=== PATIENT | male | born 1965 | race Caucasian/White ===

== ENCOUNTER 2018-04-17 12:55 | Inpatient (IN) | payer OTHER ==
[2018-04-17 13:37] VITALS: BMI 22.6
--- NOTE | 2018-04-17 13:49 | HP ---
COWS - Scale Resting Pulse: 0= SD 80 or Below Sweatin= Chills/Flushing Restless Observation: 3= Extraneous Movement Pupil Size: 1= Pupils >than Normal Bone or Joint Aches: 2= Severe Diffuse Aches Runny Nose/ Eye Tearin= Runny Nose/Eyes GI Upset > 30mins: 2= Nausea/Diarrhea Tremor Observation: 2= Slight Tremor Visible Yawning Observation: 1= 1-2x During Session Anxiety or Irritability: 2=Irritable/Anxious Goose Flesh Skin: 0=Smooth Skin COWS Score: 16 CIWA Score - CIWA Score Nausea/Vomitin Muscle Tremors: 3 Anxiety: 2 Agitation: 2 Paroxysmal Sweats: 1-Minimal Palms Moist Orientation: 0-Oriented Tacttile Disturbances: 1-Very Mild Itch/Numbness Auditory Disturbances: 1-Very Mild Visual Disturbances: 1-Very Mild Sensitivity Headache: 2-Mild CIWA-Ar Total Score: 15 Admission ROS BHS - HPI Chief Complaint: i need help to stop using heroin and alcohol Allergies/Adverse Reactions: Allergies Allergy/AdvReac Type Severity Reaction Status Date / Time No Known Allergies Allergy Verified 04/17/18 13:22 History of Present Illness: this 53 years old male with heroin and alcohol dependence,seeking detox, withdrawal symptom,last detox 1999 [facility]m weight loss syncope alcohol related hepatitis c no treatment longest period of sobriety 1 year Exam Limitations: No Limitations - Ebola screening Have you traveled outside of the country in the last 21 days: No Have you had contact with anyone from an Ebola affected area: No Have you been sick,other than usual withdrawal symptoms: No Do you have a fever: No - Review of Systems Constitutional: Loss of Appetite, Malaise, Night Sweats, Changes in sleep, Weakness, Unintentional Wgt. Loss EENT: reports: Nose Congestion Respiratory: reports: No Symptoms reported Cardiac: reports: No Symptoms Reported GI: reports: Nausea, Vomiting, Abdominal cramping : reports: No Symptoms Reported Musculoskeletal: reports: Back Pain, Muscle Pain Integumentary: reports: Dryness Neuro: reports: Headache, Tremors Endocrine: reports: No Symptoms Reported Hematology: reports: No Symptoms Reported Psychiatric: reports: No Sypmtoms Reported, Judgement Intact, Mood/Affect Appropiate Patient History - Patient Medical History Hx Anemia: No Hx Asthma: No Hx Chronic Obstructive Pulmonary Disease (COPD): No Hx Cancer: No Hx Cardiac Disorders: No Hx Congestive Heart Failure: No Hx Hypertension: No Hx Hypercholesterolemia: No Hx Pacemaker: No HX Cerebrovascular Accident: No Hx Seizures: No Hx Dementia: No Hx Diabetes: Yes (iddm) Hx Gastrointestinal Disorders: No Hx Liver Disease: No Hx Genitourinary Disorders: No Hx Sexually Transmitted Disorders: No Hx Renal Disease (ESRD): No Hx Thyroid Disease: No Hx Human Immunodeficiency Virus (HIV): No (last 2016) Hx Hepatitis C: Yes Hx Depression: No Hx Suicide Attempt: No Hx Bipolar Disorder: No Hx Schizophrenia: No Other Medical History: no suicidal,no homicidal - Patient Surgical History Past Surgical History: No - PPD History Previous Implant?: Yes Documented Results: Negative w/o proof PPD to be Administered?: Yes - Smoking Cessation Smoking history: Never smoked - Substance & Tx. History Hx Alcohol Use: Yes Hx Substance Use: Yes Substance Use Type: Alcohol, Heroin Hx Substance Use Treatment: Yes (1999 last) - Substances Abused Heroin Route: Injection Frequency: Daily Amount used: 3-4 bags Age of first use: 15 Date of Last Use: 04/17/18 Alcohol-beer Route: Oral Frequency: Daily Amount used: 8 (34 oz.) Age of first use: 14 Date of Last Use: 04/17/18 Family Disease History - Family Disease History Family Disease History: Other: Brother (alcohol) Admission Physical Exam BHS - Vital Signs Vital Signs: Vital Signs - 24 hr 04/17/18 13:36 Temperature 99.2 F Pulse Rate 78 Respiratory 18 Rate Blood Pressure 143/78 - Physical General Appearance: Yes: Moderate Distress, Tremorous, Irritable, Sweating, Anxious HEENTM: Yes: Normal ENT Inspection, TAE, Pharynx Normal Respiratory: Yes: Lungs Clear, Normal Breath Sounds, No Respiratory Distress Neck: Yes: Within Normal Limits, Supple, Trachea in good position Breast: Yes: Within Normal Limits Cardiology: Yes: Within Normal Limits, Regular Rhythm, Regular Rate, S1, S2 Abdominal: Yes: Within Normal Limits, Normal Bowel Sounds, Non Tender, Flat, Soft Genitourinary: Yes: Within Normal Limits Back: Yes: Muscle Spasm Musculoskeletal: Yes: Back pain, Muscle Pain Extremities: Yes: Tremors Neurological: Yes: contact and service clerks supervisor II-XII NML intact, Fully Oriented, Alert, Motor Strength 5/5 Integumentary: Yes: Dry, Track Paz Lymphatic: Yes: Within Normal Limits - Diagnostic (1) Opioid dependence with withdrawal Current Visit: Yes Status: Acute (2) Alcohol dependence with uncomplicated withdrawal Current Visit: Yes Status: Acute (3) Alcohol dependence with intoxication Current Visit: Yes Status: Acute (4) IDDM (insulin dependent diabetes mellitus) Current Visit: Yes Status: Acute (5) Weight loss Current Visit: Yes Status: Acute (6) Dehydration Current Visit: Yes Status: Acute Cleared for Admission S - Detox or Rehab [facility] Level of Care: Medically Managed Detox Regimen/Protocol: Librium, Methadone/Librium [facility] Breath Alcohol Content Breath Alcohol Content: 0.258 Urine Drug Screen - Results Drug Screen Negative: No Urine Drug Screen Results: OPI-Opiates
[2018-04-17] MEDS ORDERED: chlordiazePOXIDE HCL 25 MG CAPSULE PO PRN (14:08)
[2018-04-17] MEDS ORDERED: ACETAMINOPHEN 325 MG TABLET (FP) PO PRN (14:08)
[2018-04-17] MEDS ORDERED: LOPERAMIDE HCL 2 MG CAPSULE PO PRN (14:08)
[2018-04-17] MEDS ORDERED: guaiFENesin/D-METHORPHAN HB 10 ML UNIT-DOSE CUPS PO PRN (14:08)
[2018-04-17] MEDS ORDERED: hydrOXYzine PAMOATE 25 MG CAPSULE (FP) PO PRN (14:08)
[2018-04-17] MEDS ORDERED: MAGNESIUM HYDROX 2400MG/30ML ORAL SUSPENSION 30 ML CUP PO PRN (14:08)
[2018-04-17] MEDS ORDERED: MAGNESIUM CITRATE 300 ML BOTTLE PO PRN (14:08)
[2018-04-17] MEDS ORDERED: MAG HYDROX/AL HYDROX/SIMETH 30 ML UNIT-DOSE CUP PO PRN (14:08)
[2018-04-17] MEDS ORDERED: IBUPROFEN 400 MG TABLET (FP) PO PRN (14:08)
[2018-04-17] MEDS ORDERED: P-EPHED 60MG/TRIPROLIDI 2.5MG TABLET PO PRN (14:08)
[2018-04-17] MEDS ORDERED: MENTHOL/PHENOL 1 EACH UD MM PRN (14:08)
[2018-04-17] MEDS ORDERED: METHADONE HCL 10 MG TABLET (FOR DETOX USE ONLY) PO ONE ×2 (15:50→23:00)
[2018-04-17] MEDS: chlordiazePOXIDE HCL 25 MG CAPSULE PO SCH ×2 (17:10→22:10)
[2018-04-17] MEDS: INSULIN SLIDING SCALE (NOVOLOG) 1 VIAL SQ SCH ×2 (17:10→22:10)
[2018-04-17] MEDS: MELATONIN 5 MG TABLETS PO PRN (22:10)
[2018-04-17] MEDS: INSULIN (LEVEMIR) 100 UNITS/ML UNITS SQ SCH (22:10)
[2018-04-17] MEDS: THIAMINE HCL 100 MG TABLET (FP) PO SCH (22:12)
[2018-04-18] MEDS: chlordiazePOXIDE HCL 25 MG CAPSULE PO SCH ×4 (05:38→22:34)
[2018-04-18] MEDS: INSULIN SLIDING SCALE (NOVOLOG) 1 VIAL SQ SCH ×4 (07:32→21:30)
--- NOTE | 2018-04-18 09:39 | EKG ---
Test Reason : Blood Pressure : / mmHG Vent. Rate : 082 BPM Atrial Rate : 082 BPM P-R Int : 142 ms QRS Dur : 084 ms QT Int : 372 ms P-R-T Axes : 072 070 047 degrees QTc Int : 434 ms NORMAL SINUS RHYTHM NORMAL ECG NO PREVIOUS ECGS AVAILABLE Confirmed by MEAGHAN DON MD ([id number]) on 04/18/2018 9:38:52 AM Referred By: Confirmed By:MEAGHAN DON MD
[2018-04-18] MEDS ORDERED: METHADONE HCL 10 MG TABLET (FOR DETOX USE ONLY) PO ONE (10:00)
[2018-04-18] MEDS: PRENATAL VITAMINS W/ FOLIC ACID TABLET (FP) PO SCH (10:39)
[2018-04-18 11:06] LABS: HEMATOCRIT 51.5 % (35.4-49); HEMOGLOBIN 16.4 GM/dL (11.7-16.9); MCH 26.2 pg (25.7-33.7); MCHC 31.9 g/dl (32.0-35.9); MEAN CELL VOLUME 82.1 fl (80-96); MEAN PLT VOLUME 10.9 fl (7.5-11.1); PLATELET COUNT 266 K/MM3 (134-434); RBC 6.27 M/mm3 (4.00-5.60); RDW 14.8 % (11.9-15.9); WHITE BLOOD COUNT 7.2 K/mm3 (4.0-10.0)
[2018-04-18 11:22] LABS: ALBUMIN 4.1 g/dl (3.4-5.0); ALK PHOS 123 U/L (45-117); ANION GAP 10 MMOL/L (8-16); BILIRUBIN,TOTAL 0.4 mg/dL (0.2-1); BLOOD UREA NITROGEN 12 mg/dL (7-18); CALCIUM 10.1 mg/dL (8.5-10.1); CHLORIDE 103 mmol/L (98-107); CO2 27 mmol/L (21-32); GLUCOSE,RANDOM 116 mg/dL (74-106); POTASSIUM 4.6 mmol/L (3.5-5.1); SGOT/AST 208 U/L (15-37); SGPT/ALT 181 U/L (13-61); SODIUM 139 mmol/L (136-145); TOT PROT 8.9 g/dl (6.4-8.2)
[2018-04-18] MEDS ORDERED: INSULIN (NOVOLOG) ASPART 100 UNITS/ML 10ML VIAL ONE ×2 (11:32→17:10)
[2018-04-18] MEDS ORDERED: FLU VACCINE QUAD 60 MCG/0.5 ML (MDV 18-19) IM ONE (12:00)
--- NOTE | 2018-04-18 14:56 | PN ---
[facility] CIWA - CIWA Score Nausea/Vomitin Muscle Tremors: 4-Moderate,w/Arms Extend Anxiety: 4-Mod. Anxious/Guarded Agitation: 4-Moderately Restless Paroxysmal Sweats: 3 Orientation: 0-Oriented Tacttile Disturbances: 0-None Auditory Disturbances: 0-None Visual Disturbances: 0-None Headache: 1-Very Mild CIWA-Ar Total Score: 18 BHS COWS - Scale Resting Pulse: 0= [place] 80 or Below Sweatin= Chills/Flushing Restless Observation: 3= Extraneous Movement Pupil Size: 0= Normal to Room Light Bone or Joint Aches: 2= Severe Diffuse Aches Runny Nose/ Eye Tearin= Runny Nose/Eyes GI Upset > 30mins: 2= Nausea/Diarrhea Tremor Observation of Outstretched Hands: 2= Slight Tremor Visible Yawning Observation: 1= 1-2x During Session Anxiety or Irritability: 2=Irritable/Anxious Goose Flesh Skin: 0=Smooth Skin COWS Score: 15 [facility] Progress Note (SOAP) Subjective: Tremor, chills, sweating Objective: 04/18/18 14:53 Last Vital Signs Temp Pulse Resp BP Pulse Ox 97.2 F L 60 18 117/71 04/18/18 13:20 04/18/18 14:30 04/18/18 13:20 04/18/18 13:20 Laboratory Tests 04/17/18 04/17/18 04/17/18 13:49 14:08 17:07 WBC RBC Hgb Hct MCV MCH MCHC RDW Plt Count MPV Sodium Potassium Chloride Carbon Dioxide Anion Gap BUN Creatinine Creat Clearance w eGFR POC Glucometer 138 123 Random Glucose Calcium Total Bilirubin AST ALT Alkaline Phosphatase Total Protein Albumin RPR Titer HIV 1&2 Antibody Screen Negative HIV P24 Antigen Negative 04/17/18 04/18/18 04/18/18 20:46 05:39 06:00 WBC 7.2 RBC 6.27 H Hgb 16.4 Hct 51.5 H MCV 82.1 MCH 26.2 MCHC 31.9 L RDW 14.8 Plt Count 266 MPV 10.9 Sodium Potassium Chloride Carbon Dioxide Anion Gap BUN Creatinine Creat Clearance w eGFR POC Glucometer 135 122 Random Glucose Calcium Total Bilirubin AST ALT Alkaline Phosphatase Total Protein Albumin RPR Titer HIV 1&2 Antibody Screen HIV P24 Antigen 04/18/18 04/18/18 04/18/18 06:00 06:00 11:30 WBC RBC Hgb Hct MCV MCH MCHC RDW Plt Count MPV Sodium 139 Potassium 4.6 Chloride 103 Carbon Dioxide 27 Anion Gap 10 BUN 12 Creatinine 1.0 Creat Clearance w eGFR > 60 POC Glucometer 185 Random Glucose 116 H Calcium 10.1 Total Bilirubin 0.4 AST 208 H ALT 181 H Alkaline Phosphatase 123 H Total Protein 8.9 H Albumin 4.1 RPR Titer Nonreactive HIV 1&2 Antibody Screen HIV P24 Antigen Labs reviewed: increased RBC, increased AST/ALT, increased glucose Assessment: 04/18/18 14:56 Withdrawal sxs Noted with hyperglycemia, erythrocytosis and elevated LFTs Plan: Continue detox Hyperglycemia: secondary to DMT2, continue present regimen Erythrocytosis: repeat CBC Elevated LFTs: most likely related to hepatitis C (h/o hep c), repeat AST/ALT, send hepatitis C ab
[2018-04-18 17:41] LABS: URINE APPEARANCE CLEAR; URINE BILIRUBIN NEGATIVE (<2.0 mg/dL); URINE COLOR COLORLESS; URINE GLUCOSE (UA) NEGATIVE (NEGATIVE); URINE KETONE NEGATIVE (NEGATIVE); URINE LEUK ESTERASE NEGATIVE (NEGATIVE); URINE NITRITE NEGATIVE (NEGATIVE); URINE PROTEIN NEGATIVE (NEGATIVE); URINE UROBILINOGEN NEGATIVE mg/dL (0.2-1.0)
--- NOTE | 2018-04-18 18:39 | CONSULT ---
[facility] Psychiatric Consult - Data Date of interview: 04/18/18 Admission source: [facility] Identifying data: Readmission to [facility] for this 53 y/o male seeking detoxification treatment on for heroin and alcohol dependence.Patient is single,a father of five,homeless,unemployed and supported on welfare. Substance Abuse History: Discussed with the patient in this interview.Details in current [facility] report as follows : Smoking history: Never smoked. - Substance & Tx. History. Hx Alcohol Use: Yes. Hx Substance Use: Yes. Substance Use Type : Alcohol, Heroin. Hx Substance Use Treatment: Yes (1999 last). - Substances Abused. Heroin. Route: Injection. Frequency: Daily. Amount used: 3-4 bags. Age of first use: 15. Date of Last Use: 04/17/18. Alcohol-beer. Route: Oral. Frequency: Daily. Amount used: 8 (34 oz.). Age of first use: 14. Date of Last Use: 04/17/18 Medical History: Hepatitis C and diabetes mellitus. Psychiatric History: History of one psychiatric hospitalization at [facility].Diagnosed with MDD.Patient used to be followed at [facility] in [facility]. Dropped out of [facility] care. Mr Saxena denies history of suicide attempts. Physical/Sexual Abuse/Trauma History: Patient denies. Additional Comment: Urine Drug Screen Results: OPI-Opiates.Noted. Mental Status Exam - Mental Status Exam Alert and Oriented to: Time, Place Cognitive Function: Good Patient Appearance: Well Groomed Mood: Hopeful, Euthymic Affect: Appropriate, Normal Range Patient Behavior: Appropriate, Cooperative Speech Pattern: Clear Voice Loudness: Normal Thought Process: Intact, Goal Oriented Thought Disorder: Not Present Hallucinations: Denies Suicidal Ideation: Denies Homicidal Ideation: Denies Insight/Judgement: Poor Sleep: Poorly, Difficulty falling asleep Appetite: Good Muscle strength/Tone: Normal Gait/Station: Normal Psychiatric Findings - Problem List ([place] 1, 2,3) (1) Alcohol dependence with uncomplicated withdrawal Current Visit: Yes Status: Acute (2) Opioid dependence with withdrawal Current Visit: Yes Status: Acute (3) Insomnia Current Visit: Yes Status: Acute - Initial Treatment Plan Initial Treatment Plan: Psychoeducation.Detoxification.Slep hygiene recommended to the patient.Group + supportive therapy session. Insomnia is addressed with Ambien 5 mg po hs prn.Patrient is made aware of risk of parasomnias.Agrees to this careplan.Observation.
--- NOTE | 2018-04-18 21:26 | PN ---
[facility]HS Progress Note Note: Sleepy but easily arousable. Oriented. Vital Signs 04/18/18 04/18/18 04/18/18 14:30 15:00 15:30 Temperature Pulse Rate 60 80 80 Respiratory 18 18 Rate Blood Pressure 04/18/18 04/18/18 04/18/18 16:00 16:30 17:00 Temperature Pulse Rate 78 84 80 Respiratory 18 18 18 Rate Blood Pressure 04/18/18 18:00 Temperature 98.0 F Pulse Rate 56 L Respiratory 18 Rate Blood Pressure 116/64 CMP Sodium 139 mmol/L (136-145) 04/18/18 06:00 Potassium 4.6 mmol/L (3.5-5.1) 04/18/18 06:00 Chloride 103 mmol/L (98-107) 04/18/18 06:00 Carbon Dioxide 27 mmol/L (21-32) 04/18/18 06:00 Anion Gap 10 MMOL/L (8-16) 04/18/18 06:00 BUN 12 mg/dL (7-18) 04/18/18 06:00 Creatinine 1.0 mg/dL (0.55-1.3) 04/18/18 06:00 Creat Clearance w eGFR > 60 (>60) 04/18/18 06:00 POC Glucometer 281 UNITS (80-120) 04/18/18 21:04 Random Glucose 116 mg/dL (74-106) H 04/18/18 06:00 Calcium 10.1 mg/dL (8.5-10.1) 04/18/18 06:00 Total Bilirubin 0.4 mg/dL (0.2-1) 04/18/18 06:00 AST 208 U/L (15-37) H 04/18/18 06:00 ALT 181 U/L (13-61) H 04/18/18 06:00 Alkaline Phosphatase 123 U/L (45-117) H 04/18/18 06:00 Total Protein 8.9 g/dl (6.4-8.2) H 04/18/18 06:00 Albumin 4.1 g/dl (3.4-5.0) 04/18/18 06:00 Labs reviewed. Hold Coverage but give Levemir. Serum ammonia level in am.
[2018-04-18] MEDS: THIAMINE HCL 100 MG TABLET (FP) PO SCH (21:28)
[2018-04-18] MEDS: INSULIN (LEVEMIR) 100 UNITS/ML UNITS SQ SCH (21:28)
[2018-04-19] MEDS: chlordiazePOXIDE HCL 25 MG CAPSULE PO SCH ×2 (05:55→10:46)
[2018-04-19] MEDS: INSULIN SLIDING SCALE (NOVOLOG) 1 VIAL SQ SCH ×4 (06:05→21:44)
[2018-04-19] MEDS ORDERED: METHADONE HCL 5 MG TABLET (FOR DETOX USE ONLY) PO ONE (10:00)
[2018-04-19 10:11] LABS: BASO % 0.6 % (0-2.0); EOS % 3.4 % (0-4.5); HEMATOCRIT 51.5 % (35.4-49); HEMOGLOBIN 16.6 GM/dL (11.7-16.9); LYMPH % 33.7 % (8-40); MCH 26.6 pg (25.7-33.7); MCHC 32.2 g/dl (32.0-35.9); MEAN CELL VOLUME 82.7 fl (80-96); MEAN PLT VOLUME 9.5 fl (7.5-11.1); MONO % 28.5 % (3.8-10.2); NEUT % 33.8 % (42.8-82.8); PLATELET COUNT 234 K/MM3 (134-434); RBC 6.22 M/mm3 (4.00-5.60); RDW 14.7 % (11.9-15.9); WHITE BLOOD COUNT 5.8 K/mm3 (4.0-10.0)
[2018-04-19] MEDS: PRENATAL VITAMINS W/ FOLIC ACID TABLET (FP) PO SCH (10:46)
[2018-04-19 10:51] LABS: SGOT/AST 143 U/L (15-37); SGPT/ALT 160 U/L (13-61)
[2018-04-19 11:38] LABS: ANISOCYTOSIS 0; MACROCYTOSIS 0; PLATELET ESTIMATE NORMAL
[2018-04-19] MEDS ORDERED: INSULIN (NOVOLOG) ASPART 100 UNITS/ML 10ML VIAL ONE ×2 (12:01→17:13)
--- NOTE | 2018-04-19 14:53 | PN ---
[facility] CIWA - CIWA Score Nausea/Vomitin-No Nausea/No Vomiting Muscle Tremors: 2 Anxiety: 3 Agitation: 3 Paroxysmal Sweats: 2 Orientation: 0-Oriented Tacttile Disturbances: 2-Mild Itch/Numbness/Burn Auditory Disturbances: 0-None Visual Disturbances: 0-None Headache: 0-None Present CIWA-Ar Total Score: 12 BHS COWS - Scale Resting Pulse: 0= [place] 80 or Below Sweatin= Chills/Flushing Restless Observation: 1= Difficult to Sit Still Pupil Size: 1= Pupils >than Normal Bone or Joint Aches: 1= Mild Discomfort Runny Nose/ Eye Tearin= Runny Nose/Eyes GI Upset > 30mins: 0= None Tremor Observation of Outstretched Hands: 2= Slight Tremor Visible Yawning Observation: 2= >3x During Session Anxiety or Irritability: 2=Irritable/Anxious Goose Flesh Skin: 0=Smooth Skin COWS Score: 12 S Progress Note (SOAP) Subjective: body aches, chills, sweats Objective: 04/19/18 14:52 Vital Signs Temperature 97.4 F L 04/19/18 13:50 Pulse Rate 65 04/19/18 13:50 Respiratory Rate 18 04/19/18 13:50 Blood Pressure 113/73 04/19/18 13:50 O2 Sat by Pulse Oximetry (%) Laboratory Last Values WBC 5.8 K/mm3 (4.0-10.0) 04/19/18 08:00 RBC 6.22 M/mm3 (4.00-5.60) H 04/19/18 08:00 Hgb 16.6 GM/dL (11.7-16.9) 04/19/18 08:00 Hct 51.5 % (35.4-49) H 04/19/18 08:00 MCV 82.7 fl (80-96) 04/19/18 08:00 MCH 26.6 pg (25.7-33.7) 04/19/18 08:00 MCHC 32.2 g/dl (32.0-35.9) 04/19/18 08:00 RDW 14.7 % (11.9-15.9) 04/19/18 08:00 Plt Count 234 K/MM3 (134-434) 04/19/18 08:00 MPV 9.5 fl (7.5-11.1) D 04/19/18 08:00 Absolute Neuts (auto) 2.0 K/mm3 (1.5-8.0) 04/19/18 08:00 Neutrophils % 33.8 % (42.8-82.8) L 04/19/18 08:00 Neutrophils % (Manual) 30.0 % (42.8-82.8) L 04/19/18 08:00 Band Neutrophils % 3.0 % 04/19/18 08:00 Lymphocytes % 33.7 % (8-40) 04/19/18 08:00 Lymphocytes % (Manual) 30.0 % (8-40) 04/19/18 08:00 Monocytes % 28.5 % (3.8-10.2) H 04/19/18 08:00 Monocytes % (Manual) 25 % (3.8-10.2) H 04/19/18 08:00 Eosinophils % 3.4 % (0-4.5) 04/19/18 08:00 Eosinophils % (Manual) 5.0 % (0-4.5) H 04/19/18 08:00 Basophils % 0.6 % (0-2.0) 04/19/18 08:00 Basophils % (Manual) 0.0 % (0-2.0) 04/19/18 08:00 Myelocytes % (Man) 1 % (0-2) 04/19/18 08:00 Promyelocytes % (Man) 0 % (0-2) 04/19/18 08:00 Blast Cells % (Manual) 0 % (0-0) 04/19/18 08:00 Nucleated RBC % 0 % (0-0) 04/19/18 08:00 Metamyelocytes 0 % (0-2) 04/19/18 08:00 Hypochromia 0 04/19/18 08:00 Platelet Estimate Normal 04/19/18 08:00 Polychromasia 1+ 04/19/18 08:00 Poikilocytosis 0 04/19/18 08:00 Anisocytosis 0 04/19/18 08:00 Microcytosis 1+ 04/19/18 08:00 Macrocytosis 0 04/19/18 08:00 Sodium 139 mmol/L (136-145) 04/18/18 06:00 Potassium 4.6 mmol/L (3.5-5.1) 04/18/18 06:00 Chloride 103 mmol/L (98-107) 04/18/18 06:00 Carbon Dioxide 27 mmol/L (21-32) 04/18/18 06:00 Anion Gap 10 MMOL/L (8-16) 04/18/18 06:00 BUN 12 mg/dL (7-18) 04/18/18 06:00 Creatinine 1.0 mg/dL (0.55-1.3) 04/18/18 06:00 Creat Clearance w eGFR > 60 (>60) 04/18/18 06:00 POC Glucometer 188 UNITS (80-120) 04/19/18 11:57 Random Glucose 116 mg/dL (74-106) H 04/18/18 06:00 Calcium 10.1 mg/dL (8.5-10.1) 04/18/18 06:00 Total Bilirubin 0.4 mg/dL (0.2-1) 04/18/18 06:00 AST 143 U/L (15-37) H 04/19/18 08:00 ALT 160 U/L (13-61) H 04/19/18 08:00 Alkaline Phosphatase 123 U/L (45-117) H 04/18/18 06:00 Ammonia 93.10 umol/L (11-32) H 04/19/18 08:00 Total Protein 8.9 g/dl (6.4-8.2) H 04/18/18 06:00 Albumin 4.1 g/dl (3.4-5.0) 04/18/18 06:00 Urine Color Colorless 04/18/18 16:30 Urine Appearance Clear 04/18/18 16:30 Urine pH 6.0 (5.0-8.0) 04/18/18 16:30 Ur Specific [place] 1.002 (1.010-1.035) L 04/18/18 16:30 Urine Protein Negative (NEGATIVE) 04/18/18 16:30 Urine Glucose (UA) Negative (NEGATIVE) 04/18/18 16:30 Urine Ketones Negative (NEGATIVE) 04/18/18 16:30 Urine Blood Negative (NEGATIVE) 04/18/18 16:30 Urine Nitrite Negative (NEGATIVE) 04/18/18 16:30 Urine Bilirubin Negative (<2.0 mg/dL) 04/18/18 16:30 Urine Urobilinogen Negative mg/dL (0.2-1.0) 04/18/18 16:30 Ur Leukocyte Esterase Negative (NEGATIVE) 04/18/18 16:30 RPR Titer Nonreactive (NONREACTIVE) 04/18/18 06:00 HIV 1&2 Antibody Screen Negative 04/17/18 14:08 HIV P24 Antigen Negative 04/17/18 14:08 elevated ammonia level liver enzymes improve since last labs 04/18/18 Aox3 no distress no adventitious breath sound s full ROM ambulating in the unit Assessment: 04/19/18 14:56 withdrawal symptoms elevated ammonia matheus Plan: increase PO fluids lactulose TID PO BRITTANI repeat ammonia levels in AM continue to monitor continue detox
[2018-04-19] MEDS: LACTULOSE 20 GM/30 ML UDC (FOR ORAL USE ONLY) PO SCH ×2 (18:00→22:54)
[2018-04-19] MEDS: chlordiazePOXIDE 5 MG CAPSULE PO SCH ×2 (18:02→22:54)
[2018-04-19] MEDS: ZOLPIDEM TARTRATE 5 MG TABLET PO PRN (22:54)
[2018-04-19] MEDS: THIAMINE HCL 100 MG TABLET (FP) PO SCH (22:54)
[2018-04-19] MEDS: INSULIN (LEVEMIR) 100 UNITS/ML UNITS SQ SCH (22:54)
[2018-04-20] MEDS: chlordiazePOXIDE 5 MG CAPSULE PO SCH ×2 (06:00→10:37)
[2018-04-20] MEDS ORDERED: INSULIN (NOVOLOG) ASPART 100 UNITS/ML 10ML VIAL ONE ×4 (06:16→23:02)
[2018-04-20] MEDS: INSULIN SLIDING SCALE (NOVOLOG) 1 VIAL SQ SCH ×4 (06:46→23:00)
[2018-04-20] MEDS ORDERED: METHADONE HCL 5 MG TABLET (FOR DETOX USE ONLY) PO ONE (10:00)
[2018-04-20] MEDS: PRENATAL VITAMINS W/ FOLIC ACID TABLET (FP) PO SCH (10:37)
[2018-04-20] MEDS: LACTULOSE 20 GM/30 ML UDC (FOR ORAL USE ONLY) PO SCH ×4 (10:37→22:59)
--- NOTE | 2018-04-20 12:13 | PN ---
BHS Progress Note (SOAP) Subjective: Interrupted sleep, mild tremors and sweats Objective: 04/20/18 12:12 Vital Signs - 8 hr 04/20/18 04/20/18 06:39 09:34 Temperature 97.5 F L 96.1 F L Pulse Rate 57 L 78 Respiratory 18 18 Rate Blood Pressure 116/66 114/72 Laboratory Last Values WBC 5.8 K/mm3 (4.0-10.0) 04/19/18 08:00 RBC 6.22 M/mm3 (4.00-5.60) H 04/19/18 08:00 Hgb 16.6 GM/dL (11.7-16.9) 04/19/18 08:00 Hct 51.5 % (35.4-49) H 04/19/18 08:00 MCV 82.7 fl (80-96) 04/19/18 08:00 MCH 26.6 pg (25.7-33.7) 04/19/18 08:00 MCHC 32.2 g/dl (32.0-35.9) 04/19/18 08:00 RDW 14.7 % (11.9-15.9) 04/19/18 08:00 Plt Count 234 K/MM3 (134-434) 04/19/18 08:00 MPV 9.5 fl (7.5-11.1) D 04/19/18 08:00 Absolute Neuts (auto) 2.0 K/mm3 (1.5-8.0) 04/19/18 08:00 Neutrophils % 33.8 % (42.8-82.8) L 04/19/18 08:00 Neutrophils % (Manual) 30.0 % (42.8-82.8) L 04/19/18 08:00 Band Neutrophils % 3.0 % 04/19/18 08:00 Lymphocytes % 33.7 % (8-40) 04/19/18 08:00 Lymphocytes % (Manual) 30.0 % (8-40) 04/19/18 08:00 Monocytes % 28.5 % (3.8-10.2) H 04/19/18 08:00 Monocytes % (Manual) 25 % (3.8-10.2) H 04/19/18 08:00 Eosinophils % 3.4 % (0-4.5) 04/19/18 08:00 Eosinophils % (Manual) 5.0 % (0-4.5) H 04/19/18 08:00 Basophils % 0.6 % (0-2.0) 04/19/18 08:00 Basophils % (Manual) 0.0 % (0-2.0) 04/19/18 08:00 Myelocytes % (Man) 1 % (0-2) 04/19/18 08:00 Promyelocytes % (Man) 0 % (0-2) 04/19/18 08:00 Blast Cells % (Manual) 0 % (0-0) 04/19/18 08:00 Nucleated RBC % 0 % (0-0) 04/19/18 08:00 Metamyelocytes 0 % (0-2) 04/19/18 08:00 Hypochromia 0 04/19/18 08:00 Platelet Estimate Normal 04/19/18 08:00 Polychromasia 1+ 04/19/18 08:00 Poikilocytosis 0 04/19/18 08:00 Anisocytosis 0 04/19/18 08:00 Microcytosis 1+ 04/19/18 08:00 Macrocytosis 0 04/19/18 08:00 Sodium 139 mmol/L (136-145) 04/18/18 06:00 Potassium 4.6 mmol/L (3.5-5.1) 04/18/18 06:00 Chloride 103 mmol/L (98-107) 04/18/18 06:00 Carbon Dioxide 27 mmol/L (21-32) 04/18/18 06:00 Anion Gap 10 MMOL/L (8-16) 04/18/18 06:00 BUN 12 mg/dL (7-18) 04/18/18 06:00 Creatinine 1.0 mg/dL (0.55-1.3) 04/18/18 06:00 Creat Clearance w eGFR > 60 (>60) 04/18/18 06:00 POC Glucometer 184 UNITS (80-120) 04/20/18 11:01 Random Glucose 116 mg/dL (74-106) H 04/18/18 06:00 Calcium 10.1 mg/dL (8.5-10.1) 04/18/18 06:00 Total Bilirubin 0.4 mg/dL (0.2-1) 04/18/18 06:00 AST 143 U/L (15-37) H 04/19/18 08:00 ALT 160 U/L (13-61) H 04/19/18 08:00 Alkaline Phosphatase 123 U/L (45-117) H 04/18/18 06:00 Ammonia 101.40 umol/L (11-32) H 04/20/18 07:40 Total Protein 8.9 g/dl (6.4-8.2) H 04/18/18 06:00 Albumin 4.1 g/dl (3.4-5.0) 04/18/18 06:00 Urine Color Colorless 04/18/18 16:30 Urine Appearance Clear 04/18/18 16:30 Urine pH 6.0 (5.0-8.0) 04/18/18 16:30 Ur Specific [place] 1.002 (1.010-1.035) L 04/18/18 16:30 Urine Protein Negative (NEGATIVE) 04/18/18 16:30 Urine Glucose (UA) Negative (NEGATIVE) 04/18/18 16:30 Urine Ketones Negative (NEGATIVE) 04/18/18 16:30 Urine Blood Negative (NEGATIVE) 04/18/18 16:30 Urine Nitrite Negative (NEGATIVE) 04/18/18 16:30 Urine Bilirubin Negative (<2.0 mg/dL) 04/18/18 16:30 Urine Urobilinogen Negative mg/dL (0.2-1.0) 04/18/18 16:30 Ur Leukocyte Esterase Negative (NEGATIVE) 04/18/18 16:30 RPR Titer Nonreactive (NONREACTIVE) 04/18/18 06:00 HIV 1&2 Antibody Screen Negative 04/17/18 14:08 HIV P24 Antigen Negative 04/17/18 14:08 Labs noted-Elevated LFTs Assessment: 04/20/18 12:13 Withdrawal sx Plan: Continue detox
[2018-04-20] MEDS: chlordiazePOXIDE HCL 10 MG CAPSULE PO SCH ×2 (17:43→22:59)
[2018-04-20] MEDS: THIAMINE HCL 100 MG TABLET (FP) PO SCH (22:59)
[2018-04-20] MEDS: INSULIN (LEVEMIR) 100 UNITS/ML UNITS SQ SCH (23:00)
[2018-04-20] MEDS: MELATONIN 5 MG TABLETS PO PRN (23:13)
[2018-04-21] MEDS: chlordiazePOXIDE HCL 10 MG CAPSULE PO SCH ×2 (05:27→10:44)
[2018-04-21] MEDS ORDERED: INSULIN (NOVOLOG) ASPART 100 UNITS/ML 10ML VIAL ONE ×2 (06:22→16:31)
[2018-04-21] MEDS: INSULIN SLIDING SCALE (NOVOLOG) 1 VIAL SQ SCH ×4 (06:37→21:41)
[2018-04-21] MEDS ORDERED: METHADONE HCL 10 MG TABLET (FOR DETOX USE ONLY) PO ONE (10:00)
[2018-04-21] MEDS: PRENATAL VITAMINS W/ FOLIC ACID TABLET (FP) PO SCH (10:44)
[2018-04-21] MEDS: LACTULOSE 20 GM/30 ML UDC (FOR ORAL USE ONLY) PO SCH ×4 (10:45→21:29)
--- NOTE | 2018-04-21 16:36 | PN ---
BHS Progress Note (SOAP) Subjective: interrupted sleep sweats Objective: 04/21/18 16:35 A O x 3 Vital Signs Temperature 96.9 F L 04/21/18 14:32 Pulse Rate 65 04/21/18 14:32 Respiratory Rate 18 04/21/18 14:32 Blood Pressure 118/73 04/21/18 14:32 O2 Sat by Pulse Oximetry (%) Assessment: 04/21/18 16:36 withdrawal sx Plan: continue detox
[2018-04-21] MEDS: INSULIN (LEVEMIR) 100 UNITS/ML UNITS SQ SCH (21:29)
[2018-04-21] MEDS: THIAMINE HCL 100 MG TABLET (FP) PO SCH (21:30)
[2018-04-21] MEDS: ZOLPIDEM TARTRATE 5 MG TABLET PO PRN (21:30)
[2018-04-22] MEDS ORDERED: METHADONE HCL 5 MG TABLET (FOR DETOX USE ONLY) PO ONE (06:00)
[2018-04-22] MEDS: INSULIN SLIDING SCALE (NOVOLOG) 1 VIAL SQ SCH ×2 (06:45→11:50)
[2018-04-22] MEDS ORDERED: INSULIN (NOVOLOG) ASPART 100 UNITS/ML 10ML VIAL ONE ×2 (06:46→11:50)
[2018-04-22 09:39] VITALS: BP 99/67; PULSE 83; TEMP 97.3
[2018-04-22] MEDS: PRENATAL VITAMINS W/ FOLIC ACID TABLET (FP) PO SCH (10:41)
[2018-04-22] MEDS: LACTULOSE 20 GM/30 ML UDC (FOR ORAL USE ONLY) PO SCH (10:41)
--- NOTE | 2018-04-22 12:04 | DS ---
[facility] Detox Discharge Summary Admission Date: 04/17/18 Discharge Date: 04/22/18 - History Present History: Alcohol Dependence, Opioid Dependence - Physical Exam Results Vital Signs: Vital Signs Temperature 97.3 F L 04/22/18 09:37 Pulse Rate 83 04/22/18 09:37 Respiratory Rate 18 04/22/18 09:37 Blood Pressure 99/67 04/22/18 09:37 O2 Sat by Pulse Oximetry (%) Pertinent Admission Physical Exam Findings: PATIENT TOLERATED DETOX WELL. MEDICALLY STABLE. DENIES SI/HI. ALERT AND ORIENTED X 3, SKIN WARM AND DRY, AMB AD SABINE. IN NAD. PATIENT ACCEPTED REHAB REFERRAL TO [facility] ON 3W. PATIENT ENCOURAGED TO COMPLETE REHAB TO PREVENT RELAPSE. - Treatment Hospital Course: Detox Protocol Followed, Detoxed Safely, Responded well, Discharged Condition Good, Rehab Referral Accepted Patient has Accepted a Rehab Referral to: [facility] - Medication Discharge Medications: Ambulatory Orders Insulin Aspart [Novolog] 14 units SQ TID 04/17/18 Insulin Glargine,Hum.rec.anlog [Lantus Solostar PEN (NF)] 24 units SQ HS - AMA Did Patient Leave Against Medical Advice: No
== END 2018-04-22 12:40 | disposition other institution (70) | DRG 773 ==
LOC: YASAS 12:55 → Y3N 15:39
PROC: HZ2ZZZZ Detoxification Services for Substance Abuse Treatment (ICD-10-PCS; principal; 2018-04-17)
DX: F11.23 Opioid dependence with withdrawal (principal); F10.230 Alcohol dependence with withdrawal, uncomplicated; D75.1 Secondary polycythemia; B18.2 Chronic viral hepatitis C; G47.00 Insomnia, unspecified; E86.0 Dehydration; E11.9 Type 2 diabetes mellitus without complications; Z79.4 Long term (current) use of insulin; R94.5 Abnormal results of liver function studies; R63.4 Abnormal weight loss; Z68.22 Body mass index [BMI] 22.0-22.9, adult
CPT/HCPCS: 36415; 80053; 81003; 82140; 82962; 84450; 84460; 85025; 85027; 86593; 87389; 87522; 90688; 93005; 93010; G0008

== ENCOUNTER 2018-04-22 12:45 | Inpatient (IN) | payer OTHER ==
[2018-04-22] MEDS ORDERED: LOPERAMIDE HCL 2 MG CAPSULE PO PRN (14:00)
[2018-04-22] MEDS ORDERED: P-EPHED 60MG/TRIPROLIDI 2.5MG TABLET PO PRN (14:00)
[2018-04-22] MEDS ORDERED: MAGNESIUM CITRATE 300 ML BOTTLE PO PRN (14:00)
[2018-04-22] MEDS ORDERED: MENTHOL/PHENOL 1 EACH UD MM PRN (14:00)
[2018-04-22] MEDS ORDERED: guaiFENesin/D-METHORPHAN HB 10 ML UNIT-DOSE CUPS PO PRN (14:00)
[2018-04-22] MEDS ORDERED: MAGNESIUM HYDROX 2400MG/30ML ORAL SUSPENSION 30 ML CUP PO PRN (14:00)
[2018-04-22] MEDS ORDERED: IBUPROFEN 400 MG TABLET (FP) PO PRN (14:00)
[2018-04-22] MEDS ORDERED: MAG HYDROX/AL HYDROX/SIMETH 30 ML UNIT-DOSE CUP PO PRN (14:00)
[2018-04-22] MEDS ORDERED: ACETAMINOPHEN 325 MG TABLET (FP) PO PRN (14:00)
[2018-04-22] MEDS ORDERED: hydrOXYzine PAMOATE 25 MG CAPSULE (FP) PO PRN (14:00)
--- NOTE | 2018-04-22 14:03 | HP ---
[facility] Rehab Assess/Revision - Admission History Admitted to Rehab from: [facility] Date of Admission to Rehab: 04/22/2018 - Vital signs Vital Signs: Vital Signs Period Temp Pulse Resp BP Sys/Price Pulse Ox Last 24 Hr 98.3 F 72 18 112/69 - Findings Detox History & Physical reviewed: Yes Concur with findings: Yes Inpatient Rehab Admission - Initial Determination Are CD services needed?: Yes Free of communicable disease: Yes Not in need of hospitalization: Yes - Rehab Admission Criteria Previous failed treatment: Yes Poor recovery environment: Yes Comorbidities: Yes Lacks judgement: Yes Patient is meeting Inpatient Rehab admission criteria:: Yes
--- NOTE | 2018-04-22 14:16 | HP ---
Psychiatrist Admission - Data Date of interview: 04/22/18 Admission source: 3N Identifying data: This is the first [facility] admission for this 53 years old single male, father of 5 children, unemployedon food stamp, homeless Medical History: Significant for hepatitis C and diabetes mellitus. Psychiatric History: Reports one previous psychiatric hospitalization in at [facility] for suicidal ideation with intent to jump out of window. Told headline writer that he was in residential treament at [facility] when this admission took place. He said that it was around [place] time and he was feeling depressed and lonely. He reports that he was discharged on 2 medications for sleep and for depression. Following discharge he saw a psychiatrist affiliated with [facility] for approximately one year. He has no recollection of name of medications. At present, reports feeling well but sleeping poorly Physical/Sexual Abuse/Trauma History: Denies history of emotional, physical or sexual abuse as well as DV relationship. Additional Comment: Reports history of 5 previous misdemeanor arrests. Denies being on probation Vital Signs: Vital Signs - 24 hr 04/22/18 12:49 Temperature 98.3 F Pulse Rate 72 Respiratory 18 Rate Blood Pressure 112/69 Allergies/Adverse Reactions: Allergies Allergy/AdvReac Type Severity Reaction Status Date / Time No Known Allergies Allergy Verified 04/17/18 13:22 Date of last physical exam: 04/17/18 Concur with the findings of this exam: Yes - Substance Abuse/Tx History Hx Alcohol Use: Yes Hx Substance Use: Yes Substance Use Type: Alcohol (Started drinking alcohol at age 14, consumes 8x 34oz of beer daily. Last drank on 04/17/18), Heroin (Started using heroin at age 15, consumes 3-4 bags daily. Last used on 04/17/18) Hx Substance Use Treatment: Yes (Multiple previous inpt detox & 4 inpt rehab) Mental Status Exam - Mental Status Exam Alert and Oriented to: Time, Place, Person Cognitive Function: Fair Patient Appearance: Well Groomed Mood: Hopeful, Euthymic Affect: Appropriate Patient Behavior: Cooperative Speech Pattern: Clear Voice Loudness: Normal Thought Process: Intact, Goal Oriented Thought Disorder: Not Present Hallucinations: Denies Suicidal Ideation: Denies Homicidal Ideation: Denies Insight/Judgement: Fair Sleep: Poorly Appetite: Good Muscle strength/Tone: Normal Gait/Station: Normal Psychiatric Findings - Problem List ([place] 1, 2,3) (1) Alcohol dependence Current Visit: Yes Status: Acute (2) Opioid dependence Current Visit: Yes Status: Acute (3) Depressive disorder Current Visit: Yes Status: Chronic (4) Substance induced mood disorder Current Visit: Yes Status: Ruled-out (5) Type 2 diabetes mellitus Current Visit: No Status: Chronic Qualifiers: Diabetes mellitus nursing home insulin use: with acid purifier use Diabetes mellitus complication status: without complication Qualified Code(s): E11.9 - Type 2 diabetes mellitus without complications; Z79.4 - prison (current) use of insulin (6) Hepatitis C Current Visit: No Status: Chronic Qualifiers: Viral hepatitis chronicity: chronic - Initial Treatment Plan Initial Treatment Plan: 1) Start Melatonin 10 mg po HS prn for insomnia. 2) Monitor progress
[2018-04-22] MEDS: INSULIN SLIDING SCALE (NOVOLOG) 1 VIAL SQ SCH ×2 (16:30→21:39)
[2018-04-22] MEDS: INSULIN (LEVEMIR) 100 UNITS/ML UNITS SQ SCH (21:37)
[2018-04-22] MEDS: THIAMINE HCL 100 MG TABLET (FP) PO SCH (21:37)
[2018-04-22] MEDS: MELATONIN 5 MG TABLETS PO PRN (21:40)
[2018-04-22] MEDS ORDERED: MELATONIN 5 MG TABLETS PO PRN (22:00)
[2018-04-22] MEDS ORDERED: INSULIN (NOVOLOG) ASPART 100 UNITS/ML 10ML VIAL ONE (22:36)
[2018-04-23] MEDS: INSULIN SLIDING SCALE (NOVOLOG) 1 VIAL SQ SCH ×4 (06:25→22:15)
[2018-04-23] MEDS: PRENATAL VITAMINS W/ FOLIC ACID TABLET (FP) PO SCH (10:24)
[2018-04-23] MEDS ORDERED: INSULIN (NOVOLOG) ASPART 100 UNITS/ML 10ML VIAL ONE ×3 (11:53→21:57)
[2018-04-23] MEDS: INSULIN (LEVEMIR) 100 UNITS/ML UNITS SQ SCH (21:58)
[2018-04-23] MEDS: MELATONIN 5 MG TABLETS PO PRN (21:58)
[2018-04-23] MEDS: THIAMINE HCL 100 MG TABLET (FP) PO SCH (21:58)
[2018-04-24] MEDS: INSULIN SLIDING SCALE (NOVOLOG) 1 VIAL SQ SCH ×4 (06:57→21:14)
[2018-04-24] MEDS: PRENATAL VITAMINS W/ FOLIC ACID TABLET (FP) PO SCH (10:07)
[2018-04-24] MEDS ORDERED: INSULIN (NOVOLOG) ASPART 100 UNITS/ML 10ML VIAL ONE (11:46)
[2018-04-24] MEDS ORDERED: PNEUMOCOCCAL 23 VACCINE 0.5 ML VIAL IM ONE (12:00)
[2018-04-24] MEDS ORDERED: PNEUMOC 13-VAL CONJ-DIP CRM/PF 0.5 ML DISP.SYRIN IM ONE (12:00)
[2018-04-24] MEDS: THIAMINE HCL 100 MG TABLET (FP) PO SCH (21:12)
[2018-04-24] MEDS: INSULIN (LEVEMIR) 100 UNITS/ML UNITS SQ SCH (21:12)
[2018-04-24] MEDS: MELATONIN 5 MG TABLETS PO PRN (21:16)
[2018-04-25] MEDS: INSULIN SLIDING SCALE (NOVOLOG) 1 VIAL SQ SCH ×4 (06:20→21:45)
[2018-04-25] MEDS: PRENATAL VITAMINS W/ FOLIC ACID TABLET (FP) PO SCH (10:06)
[2018-04-25] MEDS ORDERED: INSULIN (NOVOLOG) ASPART 100 UNITS/ML 10ML VIAL ONE ×3 (12:06→22:56)
[2018-04-25] MEDS: INSULIN (LEVEMIR) 100 UNITS/ML UNITS SQ SCH (21:44)
[2018-04-25] MEDS: MELATONIN 5 MG TABLETS PO PRN (21:47)
[2018-04-25] MEDS: THIAMINE HCL 100 MG TABLET (FP) PO SCH (21:47)
[2018-04-26] MEDS: INSULIN SLIDING SCALE (NOVOLOG) 1 VIAL SQ SCH ×4 (06:21→21:25)
[2018-04-26] MEDS: PRENATAL VITAMINS W/ FOLIC ACID TABLET (FP) PO SCH (10:03)
[2018-04-26] MEDS ORDERED: INSULIN (NOVOLOG) ASPART 100 UNITS/ML 10ML VIAL ONE (11:46)
[2018-04-26] MEDS: MELATONIN 5 MG TABLETS PO PRN (21:24)
[2018-04-26] MEDS: THIAMINE HCL 100 MG TABLET (FP) PO SCH (21:24)
[2018-04-26] MEDS: INSULIN (LEVEMIR) 100 UNITS/ML UNITS SQ SCH (21:24)
[2018-04-27] MEDS: INSULIN SLIDING SCALE (NOVOLOG) 1 VIAL SQ SCH ×4 (06:17→21:30)
[2018-04-27] MEDS: PRENATAL VITAMINS W/ FOLIC ACID TABLET (FP) PO SCH (10:12)
[2018-04-27] MEDS: THIAMINE HCL 100 MG TABLET (FP) PO SCH (21:25)
[2018-04-27] MEDS: MELATONIN 5 MG TABLETS PO PRN (21:26)
[2018-04-27] MEDS: INSULIN (LEVEMIR) 100 UNITS/ML UNITS SQ SCH (21:28)
[2018-04-27] MEDS ORDERED: INSULIN (NOVOLOG) ASPART 100 UNITS/ML 10ML VIAL ONE (23:11)
[2018-04-28] MEDS: INSULIN SLIDING SCALE (NOVOLOG) 1 VIAL SQ SCH ×4 (06:45→22:02)
[2018-04-28] MEDS: PRENATAL VITAMINS W/ FOLIC ACID TABLET (FP) PO SCH (09:45)
[2018-04-28] MEDS ORDERED: INSULIN (NOVOLOG) ASPART 100 UNITS/ML 10ML VIAL ONE ×3 (11:50→22:13)
[2018-04-28] MEDS: INSULIN (LEVEMIR) 100 UNITS/ML UNITS SQ SCH (22:01)
[2018-04-28] MEDS: THIAMINE HCL 100 MG TABLET (FP) PO SCH (22:03)
[2018-04-28] MEDS: MELATONIN 5 MG TABLETS PO PRN (22:03)
[2018-04-29] MEDS: INSULIN SLIDING SCALE (NOVOLOG) 1 VIAL SQ SCH ×4 (06:21→21:25)
[2018-04-29] MEDS: PRENATAL VITAMINS W/ FOLIC ACID TABLET (FP) PO SCH (10:20)
[2018-04-29] MEDS: THIAMINE HCL 100 MG TABLET (FP) PO SCH (21:24)
[2018-04-29] MEDS: MELATONIN 5 MG TABLETS PO PRN (21:24)
[2018-04-29] MEDS: INSULIN (LEVEMIR) 100 UNITS/ML UNITS SQ SCH (21:25)
[2018-04-30] MEDS: INSULIN SLIDING SCALE (NOVOLOG) 1 VIAL SQ SCH ×4 (07:10→21:09)
[2018-04-30] MEDS: PRENATAL VITAMINS W/ FOLIC ACID TABLET (FP) PO SCH (10:10)
[2018-04-30] MEDS ORDERED: INSULIN (NOVOLOG) ASPART 100 UNITS/ML 10ML VIAL ONE ×2 (11:44→22:03)
[2018-04-30] MEDS: INSULIN (LEVEMIR) 100 UNITS/ML UNITS SQ SCH (21:09)
[2018-04-30] MEDS: THIAMINE HCL 100 MG TABLET (FP) PO SCH (21:10)
[2018-04-30] MEDS: MELATONIN 5 MG TABLETS PO PRN (21:10)
[2018-05-01] MEDS: INSULIN SLIDING SCALE (NOVOLOG) 1 VIAL SQ SCH ×4 (06:50→21:19)
[2018-05-01] MEDS: PRENATAL VITAMINS W/ FOLIC ACID TABLET (FP) PO SCH (10:18)
[2018-05-01] MEDS ORDERED: INSULIN (NOVOLOG) ASPART 100 UNITS/ML 10ML VIAL ONE ×2 (12:02→22:11)
[2018-05-01] MEDS: THIAMINE HCL 100 MG TABLET (FP) PO SCH (21:19)
[2018-05-01] MEDS: MELATONIN 5 MG TABLETS PO PRN (21:19)
[2018-05-01] MEDS: INSULIN (LEVEMIR) 100 UNITS/ML UNITS SQ SCH (21:19)
[2018-05-02] MEDS: INSULIN SLIDING SCALE (NOVOLOG) 1 VIAL SQ SCH ×4 (06:16→21:28)
[2018-05-02] MEDS: PRENATAL VITAMINS W/ FOLIC ACID TABLET (FP) PO SCH (09:55)
[2018-05-02] MEDS: MELATONIN 5 MG TABLETS PO PRN (21:25)
[2018-05-02] MEDS: THIAMINE HCL 100 MG TABLET (FP) PO SCH (21:25)
[2018-05-02] MEDS: INSULIN (LEVEMIR) 100 UNITS/ML UNITS SQ SCH (21:27)
[2018-05-03] MEDS: INSULIN SLIDING SCALE (NOVOLOG) 1 VIAL SQ SCH ×4 (06:14→21:23)
[2018-05-03] MEDS: PRENATAL VITAMINS W/ FOLIC ACID TABLET (FP) PO SCH (10:08)
[2018-05-03] MEDS ORDERED: INSULIN (NOVOLOG) ASPART 100 UNITS/ML 10ML VIAL ONE ×2 (11:30→21:19)
[2018-05-03] MEDS: INSULIN (LEVEMIR) 100 UNITS/ML UNITS SQ SCH (21:20)
[2018-05-03] MEDS: THIAMINE HCL 100 MG TABLET (FP) PO SCH (21:23)
[2018-05-03] MEDS: MELATONIN 5 MG TABLETS PO PRN (21:24)
[2018-05-04] MEDS: INSULIN SLIDING SCALE (NOVOLOG) 1 VIAL SQ SCH ×4 (06:32→21:23)
[2018-05-04] MEDS: PRENATAL VITAMINS W/ FOLIC ACID TABLET (FP) PO SCH (09:52)
[2018-05-04] MEDS ORDERED: INSULIN (NOVOLOG) ASPART 100 UNITS/ML 10ML VIAL ONE (11:37)
[2018-05-04] MEDS: THIAMINE HCL 100 MG TABLET (FP) PO SCH (21:23)
[2018-05-04] MEDS: INSULIN (LEVEMIR) 100 UNITS/ML UNITS SQ SCH (21:23)
[2018-05-04] MEDS: MELATONIN 5 MG TABLETS PO PRN (21:24)
[2018-05-05] MEDS: INSULIN SLIDING SCALE (NOVOLOG) 1 VIAL SQ SCH ×4 (06:20→21:09)
--- NOTE | 2018-05-05 09:56 | PN ---
Psychiatric Progress Note Vital Signs: Vital Signs Period Temp Pulse Resp BP Sys/Price Pulse Ox Last 24 Hr 98.0 F 58 18-18 107/71 Date of Session: 05/05/18 Chief Complaint:: Discharge Note HPI: Patient addressingAlcohol beverly Opioid Dependence comorbid with Depressive Disorder and Substance-Induced Mood Disorder ROS: Type 2 DM, Hep C were medically managed Current Medications: Active Medications Generic Name Dose Route Start Last Admin Trade Name Freq PRN Reason Stop Dose Admin Acetaminophen 650 mg 04/22/18 14:00 Tylenol - PO Q4H PRN FEVER Al Hydroxide/Mg Hydroxide 30 ml 04/22/18 14:00 Mylanta Oral Suspension - PO Q6H PRN DYSPEPSIA Eucalyptus/Menthol/Phenol/Sorbitol 1 each 04/22/18 14:00 Cepastat Lozenge - MM Q4H PRN SORE THROAT Guaifenesin 10 ml 04/22/18 14:00 Robitussin Dm - PO Q6H PRN COUGH Hydroxyzine Pamoate 25 mg 04/22/18 14:00 Vistaril - PO Q4H PRN AGITATION Ibuprofen 400 mg 04/22/18 14:00 Motrin - PO Q6H PRN Pain Level 4-6 Insulin Aspart 1 vial 04/22/18 16:30 05/05/18 06:20 Novolog Vial Sliding Scale - SQ Not Given ACHS [facility] Protocol Insulin Detemir 40 units 04/22/18 22:00 05/04/18 21:23 Levemir Vial SQ 40 units HS BRITTANI Administration Loperamide HCl 4 mg 04/22/18 14:00 Imodium - PO Q6H PRN DIARRHEA Magnesium Citrate 300 ml 04/22/18 14:00 Citroma - PO Q48H PRN CONSTIPATION Magnesium Hydroxide 30 ml 04/22/18 14:00 Milk Of Magnesia - PO DAILY PRN CONSTIPATION Melatonin 10 mg 04/22/18 22:00 05/04/18 21:24 Melatonin PO 10 mg HS PRN Administration INSOMNIA Multivit/Folic Acid/Iron 1 tab 04/23/18 10:00 05/04/18 09:52 Vitamins (Sjr) - PO 1 tab DAILY BRITTANI Administration Pseudoephedrine/Triprolidine 1 combo 04/22/18 14:00 Actifed - PO TID PRN NASAL CONGESTION Thiamine HCl 100 mg 04/22/18 22:00 05/04/18 21:23 Vitamin B1 - PO 100 mg HS BRITTANI Administration Current Side Effect: No Lab tests ordered: Yes Lab tests reviewed: Yes Provider note:: Patient will complete this program on 05/06/18. He has met his treatment goals and will continue to address his issues in [facility] residential treatment at [facility] at [address] [place] [address]. Told keno writer / runner that from his participation in this program, he has learned. He is stable for discharge on 05/06/18 Total face to face time:: 35 Mental Status Exam - Mental Status Exam Alert and Oriented to: Time, Place, Person Cognitive Function: Fair Patient Appearance: Well Groomed Mood: Hopeful, Euthymic Affect: Appropriate Patient Behavior: Cooperative Speech Pattern: Clear Voice Loudness: Normal Thought Process: Intact, Goal Oriented Thought Disorder: Not Present Hallucinations: Denies Suicidal Ideation: Denies Homicidal Ideation: Denies Insight/Judgement: Fair Sleep: Fair Appetite: Good Muscle strength/Tone: Normal Gait/Station: Normal Psychiatric Treatment Plan - Problem List (1) Alcohol dependence Current Visit: Yes (2) Opioid dependence Current Visit: Yes (3) Depressive disorder Current Visit: Yes (4) Substance induced mood disorder Current Visit: Yes (5) Type 2 diabetes mellitus Current Visit: No Qualifiers: Diabetes mellitus custodial insulin use: with custodial use Diabetes mellitus complication status: without complication Qualified Code(s): E11.9 - Type 2 diabetes mellitus without complications; Z79.4 - alf (current) use of insulin (6) Hepatitis C Current Visit: No Qualifiers: Viral hepatitis chronicity: chronic Initial treatment plan: Patient will be discharged tomorrow and referrred to [facility] for [facility]ator residential treatment
[2018-05-05] MEDS: PRENATAL VITAMINS W/ FOLIC ACID TABLET (FP) PO SCH (10:21)
[2018-05-05] MEDS ORDERED: INSULIN (NOVOLOG) ASPART 100 UNITS/ML 10ML VIAL ONE (11:40)
[2018-05-05] MEDS: INSULIN (LEVEMIR) 100 UNITS/ML UNITS SQ SCH (21:08)
[2018-05-05] MEDS: MELATONIN 5 MG TABLETS PO PRN (21:10)
[2018-05-05] MEDS: THIAMINE HCL 100 MG TABLET (FP) PO SCH (21:10)
[2018-05-06] MEDS: INSULIN SLIDING SCALE (NOVOLOG) 1 VIAL SQ SCH (06:32)
[2018-05-06 07:07] VITALS: BP 118/70; PULSE 65; TEMP 97.9
== END 2018-05-06 09:19 | disposition home or self-care (01) | DRG 772 ==
LOC: YASAS 12:45 → Y3W 12:46
PROVIDERS: ADMIT Psychiatry & Neurology Psychiatry; ATTEND Psychiatry & Neurology Psychiatry
PROC: HZ42ZZZ Group Counseling for Substance Abuse Treatment, Cognitive-Behavioral (ICD-10-PCS; principal; 2018-04-22)
DX: F11.20 Opioid dependence, uncomplicated (principal); F10.20 Alcohol dependence, uncomplicated; F19.24 Other psychoactive substance dependence with psychoactive substance-induced mood disorder; F32.9 Major depressive disorder, single episode, unspecified; E11.9 Type 2 diabetes mellitus without complications; B18.2 Chronic viral hepatitis C; Z79.4 Long term (current) use of insulin
CPT/HCPCS: 82962; 90732; G0009